=== PATIENT | male | born 2000 | race Caucasian/White ===

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

== ENCOUNTER 2023-11-01 14:13 | Emergency (ER) | payer OTHER, SELFPAY ==
[2023-11-01 14:15] VITALS: BP 139/75; PULSE 68; RESP 18; TEMP 36.8; O2SAT 99
--- NOTE | 2023-11-01 14:21 | ED.GENADUL_ITS ---
Discharge Plan Disposition Patient Disposition: Home Condition: Good Discharge Details Clinical Impression: Laceration of thumb, right Primary Care Provider: Carl Whitley ED Provider: Carlyle Reynolds Home Meds and New Rx's Prescriptions: No Action No Known Home Meds Discharge Instructions Instructions: Laceration Repair With Stitches ED, Wound Care ED Additional Instructions: You were seen for laceration to your right thumb. This has been cleaned and sutured. She clean this with soap and water twice a day and keep covered until healed. Sutures out in 7 to 10 days. Return to ED for any signs of infection which will include increasing pain, redness, drainage, fever. HPI General Mode of arrival: ambulatory . Date/Time Provider Initiated Documentation: 11/01/23 14:21 . Limitations to Documentation: no limitations . Information obtained by: patient . HPI Narrative: Patient presents to ED with laceration to his right thumb pad. Patient was using a table saw when he sustained the injury. Denies any other injury. Bleeding currently controlled. Reports tetanus being 5 years ago. No other complaints. Related Data Home Medications ?Medication ?Instructions ?Recorded ?Confirmed Unknown [No Known Home Meds] 11/01/23 11/01/23 Allergies Allergy/AdvReac Type Severity Reaction Status Date / Time ibuprofen AdvReac Other (See Unverified 11/01/23 14:19 Comment) General Stated Complaint: Laceration SULEMA: 3 Review of Systems Narrative: Per HPI Exam Narrative Exam Narrative: Const: WDWN male in NAD. VS per triage. HEENT: NC/AT. Normal facial exam. Neck: Supple. Trachea midline. Lungs: Normal respiratory effort. Neuro: A+O x 3. Normal speech, mentation, gait. Cranial nerves II - XII grossly intact. No gross motor or sensory deficit. Ext: No C/C/E. R hand with flap laceration involving the thumb pad. No bone exposure. Course Vital Signs Vital signs: Vital Signs Temperature 98.3 F 11/01/23 14:15 Pulse 68 11/01/23 14:15 Respiratory Rate 18 11/01/23 14:15 Blood Pressure 139/75 11/01/23 14:15 Pulse Oximetry 99 11/01/23 14:15 Temperature 98.3 F 11/01/23 14:15 Temperature Source Temporal Artery Scan 11/01/23 14:15 Pulse 68 11/01/23 14:15 Respiratory Rate 18 11/01/23 14:15 Respiratory Effort Normal, Non-Labored 11/01/23 14:18 Blood Pressure 139/75 11/01/23 14:15 Blood Pressure Position Sitting 11/01/23 14:15 Pulse Oximetry 99 11/01/23 14:15 Oxygen Delivery Method Room Air 11/01/23 14:15 Oxygen Flow Rate 0 11/01/23 14:15 Pain Level 5 11/01/23 14:15 Procedures Laceration Laceration 1: Site: hand Side (If applicable): right Size (cm): 1.5 Description: flap and clean Depth: simple, single layer Pre-repair: wound explored, irrigated extensively and deep structures intact Skin layer closed with: nylon Size (cm): 5-0 Number of sutures: 4 Technique: simple, interrupted Nerve Block Nerve Block 1: Time out performed: Yes Local Anesthetic: Lidocaine 1% Amount of anesthesia used (mL): 2 Side: right Nerve Blocks: digital Procedure Successful: Yes Patient Tolerated Procedure: well Complications: none Medical Decision Making Patient presenting to ED with right thumb laceration. He is right-hand dominant. Laceration is a flap to the pad with no evidence of bony involvement, tendon involvement. Sensation and cap refill is intact. Digital nerve block done using 1% lidocaine plain. Wound soaked and irrigated clean. Part of the flap is missing leaving a superficial defect in the pad which will heal secondarily. Rest of the flap sutured with 5-0 nylon with good closure. Tetanus is up-to-date. Wound care and dressing changes discussed. Sutures out in 7 to 10 days. Return precautions provided. 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
== END 2023-11-01 15:15 | disposition home or self-care (01) ==
LOC: ER 15:26
PROVIDERS: Emergency Provider Emergency Medicine; PCP Family Medicine
DX: S61.011A Laceration without foreign body of right thumb without damage to nail, initial encounter (principal); W27.0XXA Contact with workbench tool, initial encounter; Y93.89 Activity, other specified; Y92.89 Other specified places as the place of occurrence of the external cause; Y99.0 Civilian activity done for income or pay; F17.210 Nicotine dependence, cigarettes, uncomplicated; F17.290 Nicotine dependence, other tobacco product, uncomplicated
CPT/HCPCS: 12001; 99283